=== PATIENT | male | born 1945 | race African-American/Black ===

== ENCOUNTER 2021-08-28 10:11 | Emergency (ER) | payer OTHER ==
[~2021-08-28 10:11] MED LIST: Iopamidol-370 76% 500 ML 1 ML ONE
[2021-08-28 11:02] LABS: #Lymphocytes 0.4 thou/uL (1.20-3.40); #Monocytes 0.3 thou/uL (0.11-0.59); #Neutrophils 4.4 thou/uL (1.40-6.50); %Basophils 0.2 % (0.0-1.0); %Eosinophils 0.1 % (0.0-10.0); %Lymphocytes 7.5 % (21.0-51.0); %Monocytes 5.9 % (0.0-10.0); %Neutrophils 86.2 % (42.0-75.0); Hemoglobin 12.2 g/dL (14.0-18.0); Mean Corpuscular HGB CONC 33.3 g/dL (32.0-36.0); Mean Corpuscular Hemoglobin 30.2 pg (27.0-31.0); Mean Corpuscular Volume 90.5 fL (78.0-98.0); Mean Platelet Volume 9.6 fL (7.4-10.4); Platelet Count 187 thou/uL (130-400); RBC Distribution Width 12.4 % (11.5-14.5); Red Blood Cell (RBC) Count 4.04 mill/uL (4.70-6.10); White Blood Cell (WBC) Count 5.1 thou/uL (4.8-10.8)
[2021-08-28] MEDS ORDERED: Ketorolac Tromethamine 30 MG/ML VIAL ONE ×2 (11:03→11:44)
[2021-08-28] MEDS ORDERED: Acetaminophen 500 MG TAB ONE (11:04)
[2021-08-28 11:26] LABS: ALT (SGPT) 36 U/L (8-55); AST (SGOT) 68 U/L (5-34); Albumin 3.5 g/dL (3.4-4.8); Alkaline Phosphatase 41 U/L (40-110); Anion Gap 17 mmol/L (10-20); BUN (Urea Nitrogen) 41 mg/dL (8.4-25.7); Bilirubin, Total 0.7 mg/dL (0.2-1.2); Calc. Creatinine Clearance 0 mL/min (70-130); Calcium 8.7 mg/dL (7.8-10.44); Carbon Dioxide 21 mmol/L (23-31); Chloride 107 mmol/L (98-107); Globulin 3.2 g/dL (2.4-3.5); Glucose 114 mg/dL (83-110); Potassium 3.7 mmol/L (3.5-5.1); Protein, Total 6.7 g/dL (5.8-8.1); Sodium 141 mmol/L (136-145)
[2021-08-28] MEDS ORDERED: Morphine 4 MG/ML VIAL ONE (11:43)
[2021-08-28] MEDS ORDERED: Cyclobenzaprine 10 MG TAB ONE (11:44)
[2021-08-28 12:12] LABS: SARS-CoV-2 NAA Rapid Test DETECTED (NotDetected)
[2021-08-28] MEDS ORDERED: Enoxaparin Sodium 100 MG/ML SYRINGE ONE (12:19)
== END 2021-08-28 19:45 | disposition short-term general hospital (02) ==
LOC: ERS 10:11
DX: U07.1 COVID-19 (principal); J12.82 Pneumonia due to coronavirus disease 2019; R09.02 Hypoxemia; R79.89 Other specified abnormal findings of blood chemistry
CPT/HCPCS: 0240U; 36415; 71045; 71275; 80053; 82553; 83605; 83880; 84484; 85025; 85379; 87040; 93005; 96372; 96374; J1650; J1885; J2270